=== PATIENT | female | born 1990 | race Hispanic/Latino ===

== ENCOUNTER 2023-03-30 11:08 | Emergency (ER) | payer BC ==
[2023-03-30] MEDS ORDERED: Lidocaine 1% w/Epinephrine 1:100K 50 ML VIAL ONE (11:58)
[2023-03-30] MEDS ORDERED: Boostrix 0.5 ML (Tdap) VIAL (>/=7 yrs of age) ONE (11:59)
[2023-03-30] MEDS ORDERED: Bacitracin 1 PK ONE (13:14)
== END 2023-03-30 13:18 | disposition home or self-care (01) ==
LOC: MADERS 11:08
DX: S61.511A Laceration without foreign body of right wrist, initial encounter (principal); Z23 Encounter for immunization; Z87.891 Personal history of nicotine dependence; W26.8XXA Contact with other sharp object(s), not elsewhere classified, initial encounter
CPT/HCPCS: 12002; 90471; 90715

== ENCOUNTER 2023-09-27 17:52 | Emergency (ER) | payer BC, SELFPAY | END 2023-09-27 19:06 | disposition left against medical advice (07) | LOC: MADERS 17:52 | DX: R10.13 Epigastric pain (principal); Z87.891 Personal history of nicotine dependence | CPT/HCPCS: 94760 ==

== ENCOUNTER 2024-03-31 11:25 | Emergency (ER) | payer MEDICAID ==
[2024-03-31] MEDS ORDERED: Dexamethasone 10 MG/ML VIAL ONE (12:00)
== END 2024-03-31 12:32 | disposition home or self-care (01) ==
LOC: MADERS 11:25
DX: J01.90 Acute sinusitis, unspecified (principal); T78.40XA Allergy, unspecified, initial encounter; R42 Dizziness and giddiness; Z87.891 Personal history of nicotine dependence
CPT/HCPCS: 96372; 99283; J1100

== ENCOUNTER 2024-08-09 09:53 | Emergency (ER) | payer BC, MEDICAID, SELFPAY | END 2024-08-09 10:26 | disposition home or self-care (01) | LOC: MADERS 09:53 | DX: J01.90 Acute sinusitis, unspecified (principal); Z87.891 Personal history of nicotine dependence | CPT/HCPCS: 99282 ==

== ENCOUNTER 2025-06-22 08:42 | Emergency (ER) | payer BC | END 2025-06-22 09:05 | disposition home or self-care (01) | LOC: MADERS 08:42 | DX: S61.211A Laceration without foreign body of left index finger without damage to nail, initial encounter (principal); Z87.891 Personal history of nicotine dependence; W26.0XXA Contact with knife, initial encounter; Y93.G1 Activity, food preparation and clean up | CPT/HCPCS: 12001; 99282 ==